=== PATIENT | male | born 1975 | race African-American/Black ===

== ENCOUNTER 2017-05-16 17:15 | Emergency (ER) | payer OTHER ==
--- NOTE | ~2017-05-16 | CR72 ---
[facility] [place] A Service of [facility] RADIOLOGY TEXT RESULTS PATIENT: JOHN SCHUMACHER LOCATION: SED : 73 UNIT #: [id number] AGE: [address]: Celio Lopez MD SEX: M ORDER DR: [id number] [place] [id number] E MR#: [id number] #: [id number] NAME: JOHN SCHUMACHER. : 1975 SEX: M STUDY DATE/TIME: 05/16/2017 17:30 UNIT: SED ROOM: STUDY DESCRIPTION: CR Chest Single View Portable Attending Physician: Celio Lopez M.D. Ordering Physician: Celio Lopez M.D. Primary Care Physician: Herve Roblero Aprn MEDICAL IMAGING REPORT This report is preliminary unless electronic signature is present. EXAM Portable AP view of the chest. COMPARISON May 02, 2016, October 19, 2014, January 21, 2012. INDICATION 41-year-old male with right-side chest pain for 1 hour. FINDINGS The exam is limited by poor penetration. Heart size is likely stable when allowing for apical lordotic positioning. No convincing evidence of cardiomegaly given positioning and portable technique. No evidence of a pneumothorax, pleural effusion, or acute airspace disease. IMPRESSION No acute radiographic abnormality. Dictated by... Amando Kothari M.D. THIS IS AN ELECTRONICALLY VERIFIED REPORT Amando Kothari M.D. at 05/21/2017 10:57 PM MATT/sara TD: 05/17/2017 00:47 JOB #: [id number] MEDICAL IMAGING REPORT Page 1 of 1
--- NOTE | ~2017-05-16 | EKG ---
PATIENT: JOHN SCHUMACHER UNIT #: [id number] Ventricular Rate: 84 BPM Atrial Rate: 84 BPM P-R Interval: 146 ms QRS Duration: 90 ms Q-T Interval: 396 ms QTC Calculation(Bezet): 467 ms P [place]: 35 degrees Calculated R [place]: 36 degrees Calculated T [place]: -17 degrees Diagnosis Line: Sinus rhythm with occasional Premature ventricular Diagnosis Line: complexes Diagnosis Line: T wave abnormality, consider lateral ischemia Diagnosis Line: Prolonged QT Diagnosis Line: Abnormal ECG Diagnosis Line: When compared with ECG of 02-MAY-2016 16:42, Diagnosis Line: Premature ventricular complexes are now Present Diagnosis Line: Inverted T waves have replaced nonspecific T wave Diagnosis Line: abnormality in Inferior leads Diagnosis Line: Confirmed by JAN BIANCHI MD ([id number]) on 05/17/2017 Diagnosis Line: 5:48:41 PM INTERPRETING MD: TASH MAZA
[~2017-05-16 17:15] MED LIST: ACULAR LS5 ML OU; ALTOPREV40 MG PO; AMLODIPINE BESY10 MG PO; ASPIRIN; ASPIRIN ENTERI325 M1 PO; ASPIRIN325 M1 PO; ASPIRIN81 M2 PO; COREG PO; EFFIENT10 MG PO; HYDRALAZINE HCL50 MG PO; ISOSORBIDE PO; LISINOPRIL10 MG PO; LOPRESSOR PO; METOPROLOL TAR100 MG PO; MEVACOR10 MG; MEVACOR40 MG PO; NORCO 10-325 TA1 TAB PO; NORVASC10 MG PO; OFLOXACIN5 M1 OT; POLYTRIM O10 ML OPTH OD; PRINIVIL40 MG PO; TOPROL XL 50 MG50 M1 PO; VIT D2 PO; ZOVIRAX200 MG PO; ZOVIRAX800 MG PO
[2017-05-16 17:37] LABS: BASOPHIL% 0.4 % (0-2.5); EOSINOPHIL# 0.3 X10e3 (0-0.7); EOSINOPHIL% 3.2 % (0.0-7.0); HEMATOCRIT 43.8 % (38.0-50.0); HEMOGLOBIN 14.8 gm/dL (13.0-16.0); LYMPHOCYTE% 37.9 % (17.0-45.0); MEAN CORPUSCULAR HEMOGLOBIN 30.8 PG (28-34); MEAN CORPUSCULAR HGB CONC 33.9 g/dL (30-36); MEAN PLATELET VOLUME 8.4 FL (6.5-11.5); MONOCYTE# 0.9 X10e3 (0-1.0); MONOCYTE% 8.4 % (3.0-12.0); NEUTROPHIL# 5.2 X10e3 (1.5-7.1); NEUTROPHIL% 50.1 % (40-75); PLATELET COUNT 267 X10e3 (140-420); RED BLOOD COUNT 4.82 X10e (3.90-5.60); RED CELL DISTRIBUTION WIDTH 12.5 % (11.0-15.5); WHITE BLOOD COUNT 10.5 X10e3 (4.0-10.5)
[2017-05-16 17:39] LABS: INR 1.1; PROTHROMBIN TIME (PATIENT) 12.1 SECONDS (9.5-12.4)
[2017-05-16] MEDS ORDERED: ALTOPREV40 MG PO (17:43)
[2017-05-16] MEDS ORDERED: METOPROLOL SUCC50 MG PO (17:44)
[2017-05-16] MEDS ORDERED: NITROGLYGERIN0.4 MG SL (17:44)
[2017-05-16] MEDS ORDERED: ASPIRIN EC81 M1 PO (17:44)
[2017-05-16] MEDS ORDERED: LOTREL 10-40 M1 EACH PO (17:44)
[2017-05-16 17:47] LABS: PARTIAL THROMBOPLASTIN TIME 28.1 SECONDS (25.6-38.1)
[2017-05-16 17:48] LABS: ALBUMIN SERUM 4.4 g/dL (3.5-5.0); BILIRUBIN,TOTAL 0.4 mg/dL (0.2-2.0); BUN/CREATININE RATIO 17.77; CALCIUM SERUM 9.1 mg/dL (8.4-10.2); CREATININE SERUM 0.9 mg/dL (0.6-1.4); GLOM FILT RATE Estimated 121.7 mL/min (>60); POTASSIUM 3.4 mmol/L (3.5-5.1); PROTEIN TOTAL SERUM 7.8 g/dL (6.0-8.3)
[2017-05-16 17:53] LABS: DIFF IND NO
[2017-05-16 18:31] LABS: POC - CKMB 1.2 ng/mL (0.0-7.9); POC - MYOGLOBIN 61.7 ng/mL (0.0-169.0); POC - TROPONIN <0.05 ng/mL (<=0.05)
[2017-05-16 19:17] LABS: POC - CKMB 1.2 ng/mL (0.0-7.9); POC - MYOGLOBIN 64.6 ng/mL (0.0-169.0); POC - TROPONIN <0.05 ng/mL (<=0.05)
== END 2017-05-16 19:29 | disposition home or self-care (01) ==
LOC: SED 17:15
PROVIDERS: Emergency Medicine
DX: I25.709 Atherosclerosis of coronary artery bypass graft(s), unspecified, with unspecified angina pectoris (principal); I11.0 Hypertensive heart disease with heart failure; I50.9 Heart failure, unspecified; F17.210 Nicotine dependence, cigarettes, uncomplicated; E78.5 Hyperlipidemia, unspecified
CPT/HCPCS: 36415; 71010; 80053; 82553; 83874; 84484; 85025; 85610; 85730; 93005; 99285